=== PATIENT | female | born 1960 | race African-American/Black ===

== ENCOUNTER 2016-07-17 09:59 | Emergency (ER) | payer BC ==
[~2016-07-17] VITALS: Ht 172.7 cm; Wt 93.0 kg
[2016-07-17] MEDS ORDERED: LISI10TA5 PO (10:06)
[2016-07-17] MEDS ORDERED: METF500T4 PO (10:06)
[2016-07-17] MEDS ORDERED: AMLO10TA80 PO (10:06)
[2016-07-17] MEDS ORDERED: NAPR-679 PO (10:06)
[2016-07-17] MEDS ORDERED: CLONIDINE 0.2MG TABLET PO ONE (10:30)
[2016-07-17 11:00] LABS: BASOPHILS % 1.3 % (0.0-2.0); EOSINOPHILS % 2.9 % (0.0-5.0); HEMATOCRIT. 40.8 % (36.0-48.0); HEMOGLOBIN. 13.8 g/dL (12.0-16.0); LYMPHOCYTES % 33.8 % (20.0-50.0); MEAN CORPUSCULAR HEMOGLOBIN 29.6 pg (28.0-32.0); MEAN CORPUSCULAR HGB CONC 33.8 g/dL (31.0-37.0); MEAN CORPUSCULAR VOLUME 87.8 fL (81.0-99.0); MEAN PLATELET VOLUME 9.9 fl (7.4-10.4); MONOCYTES % 8.4 % (2.0-8.0); NEUTROPHILS % 53.6 % (40.0-76.0); PLATELET 258 x1000/uL (130-400); RED BLOOD CELL COUNT 4.65 mill/uL (4.2-5.4); RED CELL DISTRIBUTION WIDTH 13.8 % (11.6-14.6)
[2016-07-17 11:01] LABS: CHLORIDE 106 mEq/L (98-107); INDEX HEMOLYSI 4 (1-3); INDEX ICTERIC 1 (1-4); INDEX LIPEMIC 1 (1-3)
[2016-07-17 11:07] LABS: ALANINE AMINOTRANSFERASE 34 IU/L (13-61); ALBUMIN 3.5 g/dL (3.4-5.0); ANION GAP 11; CALCIUM 9.2 mg/dL (8.5-10.1); CARBON DIOXIDE 30 mEq/L (21-32); UREA NITROGEN BLOOD 13 mg/dL (7-21)
[2016-07-17 11:12] LABS: NT PRO B-TYPE NATRIURETIC PEP 61 pg/mL (5-125); TROPONIN I 0.04 ng/mL (0.00-0.04); eGFR > 60 mL/min (>60)
[2016-07-17 15:15] VITALS: BP 142/88
== END 2016-07-17 15:16 | disposition home or self-care (01) ==
LOC: ER 10:49
DX: R60.0 Localized edema (principal); I10 Essential (primary) hypertension; E11.9 Type 2 diabetes mellitus without complications; Z98.890 Other specified postprocedural states; Z91.14 Patient's other noncompliance with medication regimen
CPT/HCPCS: 36415; 71010; 80053; 82962; 83880; 84484; 85025; 85651; 93005; 99285; Z7610